=== PATIENT | male | born 1980 | race Asian ===

== ENCOUNTER → 2016-10-20 | Outpatient (CLI) | payer OTHER ==
[2015-02-25 12:00] VITALS: BP 112/74
--- NOTE | 2016-10-20 15:32 | CARD ---
APPROVED REPORT EXAM: Two-dimensional and M-mode echocardiogram with Doppler and color Doppler. Other Information Quality : Average Rhythm : NSR INDICATION Mitral Valve Disease Surgery/Intervention Status/Post Mitral Valve Replacement: Bioprosthetic 2D DIMENSIONS Left Atrium(2D)3.8 (1.6-4.0cm)IVSd0.9 (0.7-1.1cm) Aortic Root(2D)3.0 (2.0-3.7cm)LVDd4.9 (3.9-5.9cm) LVOT Diameter2.2 (1.8-2.4cm)PWd0.9 (0.7-1.1cm) LVDs3.3 (2.5-4.0cm)FS (%) 33.7 % SV71.2 mlLVEF(%)62.3 (>50%) Aortic Valve AoV Peak Zohaib.145.6cm/sAoV VTI22.1cm AO Peak GR.8.5mmHgLVOT Peak Zohaib.130.6cm/s AO Mean GR.5mmHgAVA (VMAX)3.26cm2 KENZIE (VTI)3.59qs7CI P 1/2 Sbuo338st Mitral Valve MV E Ckbglfnd860.9cm/sMV E Peak Gr.8mmHg MV DECEL [id number] A Nkosngke649.5cm/s MV E Mean Gr.4mmHgMV JZA461zf E/A Ratio0.9MV A Ywlkgkmn38pm MVA (PHT)2.04cm2 LEFT VENTRICLE The left ventricle is normal size. There is normal left ventricular wall thickness. Left ventricle sy stolic function is normal. The Ejection Fraction is 60-65%. Septal motion consistent with post-operat deandre state. The left ventricular diastolic function and filling is normal for age. RIGHT VENTRICLE The right ventricle is normal size. The right ventricular systolic function is normal. ATRIA The left atrium size is normal. The right atrium size is normal. The interatrial septum is intact wit h no evidence for an atrial septal defect or patent foramen ovale as noted on 2-D or Doppler imaging. AORTIC VALVE The aortic valve is normal in structure. The aortic valve is trileaflet. Doppler and Color Flow revea led mild aortic regurgitation. There is no significant aortic valvular stenosis. MITRAL VALVE Calculated mitral valve area is 2.0 cm2 with maximum pressure gradient of 8 mmHg and mean pressure gr adient of 4 mmHg. Doppler and Color Flow revealed no mitral valve regurgitation noted. There is a bio prosthetic mitral valve. TRICUSPID VALVE The tricuspid valve is normal in structure and function. Doppler and Color Flow revealed no tricuspid valve regurgitation noted. Unable to estimate PA pressure. There is no tricuspid valve stenosis. PULMONIC VALVE The pulmonic valve is not well visualized. Doppler and Color Flow revealed no pulmonic valvular regur gitation. There is no pulmonic valvular stenosis. GREAT VESSELS The aortic root is normal in size. The IVC is normal in size and collapses >50% with inspiration. PERICARDIAL EFFUSION There is no evidence of significant pericardial effusion. Critical Notification Critical Value: No <Conclusion> Left ventricle systolic function is normal. The Ejection Fraction is 60-65%. Mild aortic regurgitation. Bioprosthetic mitral valve apprears well seated and functioning well. There is no evidence of significant pericardial effusion.
== END | disposition home or self-care (01) ==
LOC: ECHO 10:02
PROVIDERS: ATTEND Internal Medicine Cardiovascular Disease
DX: Z95.4 Presence of other heart-valve replacement (principal); I35.1 Nonrheumatic aortic (valve) insufficiency
CPT/HCPCS: 93306

== ENCOUNTER → 2017-09-27 | Outpatient (CLI) | payer BC | END | disposition home or self-care (01) | LOC: ECHO 14:23 | DX: I08.3 Combined rheumatic disorders of mitral, aortic and tricuspid valves (principal); Z95.4 Presence of other heart-valve replacement | CPT/HCPCS: 93306 ==

== ENCOUNTER → 2019-01-18 | Outpatient (CLI) | payer BC ==
[2015-02-25 12:00] VITALS: BP 112/74
--- NOTE | 2019-01-18 14:13 | CARD ---
MR#: [id number] Date of Study: 01/18/2019 Ordering Physician: LUBA HANKS, Referring Physician: Efrain BUENROSTRO: Isadora As APPROVED REPORT EXAM: Two-dimensional and M-mode echocardiogram with Doppler and color Doppler. Other Information Quality : AverageHR: 74bpm Rhythm : NSR INDICATION post Mitral Valve replacement Surgery/Intervention Status/Post Mitral Valve Replacement: Bioprosthetic Date: 2014 2D DIMENSIONS RVDd2.4 (2.9-3.5cm)Left Atrium(2D)4.4 (1.6-4.0cm) IVSd0.7 (0.7-1.1cm)Aortic Root(2D)3.0 (2.0-3.7cm) LVDd4.6 (3.9-5.9cm)LVOT Diameter2.0 (1.8-2.4cm) PWd1.0 (0.7-1.1cm)LVDs2.8 (2.5-4.0cm) FS (%) 39.5 %SV67.9 ml LVEF(%)70.1 (>50%) Aortic Valve AoV Peak Zohaib.144.7cm/sAoV VTI25.4cm AO Peak GR.8.4mmHgLVOT Peak Zohaib.98.5cm/s AO Mean GR.4mmHgAVA (VMAX)2.10cm2 KENZIE (VTI)2.71nm4QP P 1/2 Psdl231bm Mitral Valve MV E Pomiecxn192.3cm/sMV E Peak Gr.11mmHg MV DECEL [id number] A Vidhtjju435.7cm/s MV E Mean Gr.4mmHgE/A Ratio1.2 Pulmonary Valve PV Peak Kaiepcfm07.3cm/s Tricuspid Valve TR P. Utxtjpew593gc/sRAP HDCSYJAL4jxNl TR Peak Gr.83jgPmXUCM40rcWe LEFT VENTRICLE The left ventricle is normal size. There is normal left ventricular wall thickness. The left ventricu lar systolic function is normal. The Ejection Fraction is 65-70%. There is normal LV segmental wall m otion. Transmitral Doppler flow pattern is Grade II-pseudonormal filling dynamics. RIGHT VENTRICLE The right ventricle is normal size. There is normal right ventricular wall thickness. The right ventr icular systolic function is normal. ATRIA The left atrium is mildly dilated. The right atrium size is normal. The interatrial septum is intact with no evidence for an atrial septal defect or patent foramen ovale as noted on 2-D or Doppler imagi ng. AORTIC VALVE The aortic valve is normal in structure and function. The aortic valve is trileaflet. Doppler and Col or Flow revealed mild aortic regurgitation. There is no significant aortic valvular stenosis. There i s no aortic valvular vegetation. MITRAL VALVE Prosthetic mitral valve is normal in structure and function. There is no evidence of mitral valve pro lapse. There is no mitral valve stenosis with a maximum pressure gradient of 11 mmHg and mean pressur e gradient of 4.4 mmHg. Doppler and Color-flow revealed trace mitral regurgitation. Prosthetic mitral valve appears well seated. There is a porcine mitral valve. TRICUSPID VALVE The tricuspid valve is normal in structure and function. Doppler and Color Flow revealed trace tricus pid regurgitation. There is mild pulmonary hypertension. The PA pressure was estimated at 34 mmHg. Th ere is no tricuspid valve prolapse or vegetation. There is no tricuspid valve stenosis. PULMONIC VALVE The pulmonary valve is normal in structure and function. Doppler and Color Flow revealed no pulmonic valvular regurgitation. There is no pulmonic valvular stenosis. GREAT VESSELS The aortic root is normal in size. The ascending aorta is normal in size. The IVC is normal in size a nd collapses >50% with inspiration. PERICARDIAL EFFUSION There is no evidence of significant pericardial effusion. Critical Notification Critical Value: No <Conclusion> The left ventricular systolic function is normal. The Ejection Fraction is 65-70%. There is normal LV segmental wall motion. Transmitral Doppler flow pattern is Grade II-pseudonormal filling dynamics. Mild aortic regurgitation. Bioprosthetic mitral valve appears well seated and functioning well. Trace mitral regurgitation. Trace tricuspid regurgitation. The PA pressure was estimated at 34 mmHg. There is no evidence of significant pericardial effusion. Signed by : Luba Hanks, Electronically Approved : 01/18/2019 14:12:23
== END | disposition home or self-care (01) ==
LOC: ECHO 13:08
PROVIDERS: ATTEND Internal Medicine Cardiovascular Disease
DX: I35.1 Nonrheumatic aortic (valve) insufficiency (principal); I27.20 Pulmonary hypertension, unspecified; Z95.4 Presence of other heart-valve replacement
CPT/HCPCS: 93306

== ENCOUNTER → 2020-08-29 | Outpatient (CLI) | payer BC ==
[2015-02-25 12:00] VITALS: BP 112/74
--- NOTE | 2020-09-03 10:16 | CARD ---
MR#: [id number] Date of Study: 08/29/2020 Ordering Physician: LUBA MARCANO, Referring Physician: LUBA MARCANO, Tech: Nell Dupree [facility] APPROVED REPORT EXAM: Two-dimensional and M-mode echocardiogram with Doppler and color Doppler. Other Information Quality : AverageHR: 67bpm Rhythm : NSR INDICATION 2D DIMENSIONS RVDd3.5 (2.9-3.5cm)IVSd1.1 (0.7-1.1cm) LVDd4.6 (3.9-5.9cm)PWd1.0 (0.7-1.1cm) LVDs2.7 (2.5-4.0cm)FS (%) 41.9 % SV72.4 ml Aortic Valve AoV Peak Zohaib.119.0cm/sAoV VTI23.6cm AO Peak GR.5.7mmHgLVOT Peak Zohaib.88.2cm/s LVOT VTI 17.38cmAO Mean GR.3mmHg AI P 1/2 Ytqp165ax Mitral Valve MV E Iyretmtm351.5cm/sMV DECEL PUIK908vm MV A Mtrylrcf19.2cm/sMV E Mean Gr.6mmHg MV LPP53txE/A Ratio2.2 MVA (PHT)3.63cm2 TDI E/Lateral E'16.5E/Medial E'17.1 Pulmonary Valve PV Peak Gruxbxuv408.0cm/sPV Peak Grad.5mmHg Tricuspid Valve TR P. Immcfhdi776nj/sTR Peak Gr.26mmHg Pulmonary Vein S1 Mhlmthwi46.1cm/sD2 Fxfrranl83.0cm/s PVa hscqhwuk331cdsa LEFT VENTRICLE The left ventricle is normal size. There is normal left ventricular wall thickness. The left ventricu lar systolic function is normal and the ejection fraction is within normal range. Estimated ejection fraction 55-60%. There is normal LV segmental wall motion. Transmitral Doppler flow pattern is Grade II-pseudonormal filling dynamics. RIGHT VENTRICLE The right ventricle is normal size. There is normal right ventricular wall thickness. The right ventr icular systolic function is normal. ATRIA The left atrium is mild to moderatly dilated. The right atrium size is normal. The interatrial septum is intact with no evidence for an atrial septal defect or patent foramen ovale as noted on 2-D or Do ppler imaging. AORTIC VALVE The aortic valve is normal in structure and function. Doppler and Color Flow revealed mild aortic reg urgitation. There is no significant aortic valvular stenosis. MITRAL VALVE Doppler and Color Flow revealed trace mitral regurgitation. Prosthetic mitral valve opens well. Mean gradient 5.5 mmHg. TRICUSPID VALVE The tricuspid valve is normal in structure and function. Doppler and Color Flow revealed trace tricus pid regurgitation. Estimated PAP 35 mmHg. PULMONIC VALVE The pulmonary valve is normal in structure and function. Doppler and Color Flow revealed trace pulmon ic valvular regurgitation. GREAT VESSELS The aortic root is normal in size. The ascending aorta is normal in size. The IVC is normal in size a nd collapses >50% with inspiration. PERICARDIAL EFFUSION There is no evidence of significant pericardial effusion. Critical Notification Critical Value: No <Conclusion> The left ventricle is normal size. The left ventricular systolic function is normal and the ejection fraction is within normal range. Estimated ejection fraction 55-60%. The left atrium is mild to moderatly dilated. Doppler and Color Flow revealed mild aortic regurgitation. There is no significant aortic valvular stenosis. Prosthetic mitral valve opens well. Mean gradient 5.5 mmHg. Doppler and Color Flow revealed trace mitral regurgitation. Doppler and Color Flow revealed trace tricuspid regurgitation. Estimated PAP 35 mmHg. Signed by : Rocky Delatorre MD Electronically Approved : 08/30/2020 14:35:26
== END ==
LOC: ECHO 10:01
PROVIDERS: ATTEND Internal Medicine Cardiovascular Disease
DX: I35.1 Nonrheumatic aortic (valve) insufficiency (principal); I51.7 Cardiomegaly; Z95.4 Presence of other heart-valve replacement
CPT/HCPCS: 93306

== ENCOUNTER → 2021-09-04 | Outpatient (CLI) | payer BC ==
[2015-02-25 12:00] VITALS: BP 112/74
--- NOTE | 2021-09-05 14:35 | CARD ---
MR#: [id number] Date of Study: 09/04/2021 Ordering Physician: LUBA HANKS, Referring Physician: LUBA HANKS, Tech: Alise Gordon, [facility] APPROVED REPORT EXAM: Two-dimensional and M-mode echocardiogram with Doppler and color Doppler. Other Information Quality : AverageHR: 80bpm INDICATION Mitral Valve Disease Mitral Valve replacement 2D DIMENSIONS Left Atrium(2D)3.9 (1.6-4.0cm)IVSd0.9 (0.7-1.1cm) Aortic Root(2D)3.1 (2.0-3.7cm)LVDd4.8 (3.9-5.9cm) LVOT Diameter2.1 (1.8-2.4cm)PWd0.9 (0.7-1.1cm) LVDs2.2 (2.5-4.0cm)FS (%) 53.8 % SV91.2 mlLVEF(%)84.7 (>50%) Aortic Valve AoV Peak Zohaib.128.1cm/sAoV VTI25.6cm AO Peak GR.6.6mmHgLVOT Peak Zohaib.83.6cm/s LVOT VTI 14.98cmAO Mean GR.4mmHg KENZIE (VMAX)1.67bt7BVR (VTI)1.97cm2 AI P 1/2 Irff982gt Mitral Valve MV E Cbhgbrjk627.7cm/sMV DECEL [id number] MV A Luaumcco160.6cm/sMV E Mean Gr.4mmHg MV WIR719tvD/A Ratio1.0 MVA (PHT)2.19cm2 TDI E/Lateral E'16.3E/Medial E'25.2 Pulmonary Valve PV Peak Nuvldrkb077.4cm/sPV Peak Grad.5mmHg Tricuspid Valve TR P. Wxvfuedp835xu/sRAP JQNEDPIN1oyMc TR Peak Gr.80woMdZZIO47zrYe LEFT VENTRICLE The left ventricle is normal size. There is normal left ventricular wall thickness. The left ventricu lar systolic function is normal. The Ejection Fraction is 60-65%. There is normal LV segmental wall m otion. Transmitral Doppler flow pattern is Grade II-pseudonormal filling dynamics. RIGHT VENTRICLE The right ventricle is borderline dilated. There is normal right ventricular wall thickness. The righ t ventricular systolic function is normal. ATRIA The left atrium is borderline dilated. The right atrium size is normal. The interatrial septum is int act with no evidence for an atrial septal defect or patent foramen ovale as noted on 2-D or Doppler i maging. AORTIC VALVE The aortic valve is normal in structure and function. Doppler and Color Flow revealed trace aortic re gurgitation. Calculated aortic valve area is 2.24 cm2 with maximum pressure gradient of 7 mmHg and me an pressure gradient of 4 mmHg. There is no significant aortic valvular stenosis. MITRAL VALVE The mitral valve mean gradient is 4 mmHg. Doppler and Color-flow revealed trace mitral regurgitation. There is a bioprosthetic mitral valve. TRICUSPID VALVE The tricuspid valve is normal in structure and function. Doppler and Color Flow revealed trace tricus pid regurgitation with an estimated PAP of 39 mmHg. There is no tricuspid valve stenosis. PULMONIC VALVE The pulmonary valve is normal in structure and function. Doppler and Color Flow revealed no pulmonic valvular regurgitation. GREAT VESSELS The aortic root is normal in size. The ascending aorta is normal in size. The IVC was not visualized. PERICARDIAL EFFUSION There is no evidence of significant pericardial effusion. Critical Notification Critical Value: No <Conclusion> The left ventricular systolic function is normal. The Ejection Fraction is 60-65%. There is normal LV segmental wall motion. Transmitral Doppler flow pattern is Grade II-pseudonormal filling dynamics. Bioprosthetic mitral valve appears well seated and functioning well with mean gradient 4 mmHg.. Trace tricuspid regurgitation with an estimated PAP of 39 mmHg. There is no evidence of significant pericardial effusion. Signed by : Luba Hanks, Electronically Approved : 09/05/2021 14:35:40
== END ==
LOC: ECHO 15:04
PROVIDERS: ATTEND Internal Medicine Cardiovascular Disease
DX: Z95.4 Presence of other heart-valve replacement (principal); I35.1 Nonrheumatic aortic (valve) insufficiency; I51.7 Cardiomegaly
CPT/HCPCS: 93306; C8929